=== PATIENT | female | born 1980 | race Hispanic/Latino ===

== ENCOUNTER 2020-12-12 22:34 | Emergency (ER) | payer OTHER, SELFPAY ==
--- NOTE | ~2020-12-12 | CT_ITS ---
EXAMINATION: CT abdomen pelvis w con INDICATION: Upper abdominal pain TECHNIQUE: Computed tomographic images of the abdomen and pelvis were obtained after the administrati on of 100 cc of Omnipaque 350 intravenous contrast. The dose-length product (DLP) was 335.48 mGy-cm. Automated exposure control and iterative reconstruction technique were employed. COMPARISON: None available FINDINGS: Minimal dependent atelectasis is present in the lung bases. The heart size is normal. The l iver, spleen, pancreas, gallbladder, and adrenal glands are normal. The kidneys are unremarkable. No pathologically enlarged abdominal or pelvic lymph nodes are identified. There is no free intraperiton eal gas or evidence of bowel obstruction. There is circumferential wall thickening involving much of the ileum. The appendix is normal. IMPRESSION: 1. Ileitis which could be infectious or manifestation of inflammatory bowel disease. Reviewed, dictated and finalized at location A. IMPRESSION: 1. Ileitis which could be infectious or manifestation of inflammatory bowel dis ease.
[2020-12-12 22:39] VITALS: BP 140/80; PULSE 72; RESP 20; TEMP 36.1; O2SAT 100
[2020-12-12 23:00] LABS: Basophils Percent Auto 0.3 % (0.2-1.2); Eosinophils Absolute Auto 0.3 K/mm3 (0-0.3); Eosinophils Percent Auto 2.1 % (0-4.4); Hematocrit 42.7 % (37.0-47.0); Hemoglobin 13.8 g/dL (12.0-15.0); Immature Granulocyte Absolute 0.05 K/mm3 (0.00-0.031); Immature Granulocyte Percent A 0.4 % (0-0.5); Lymphocytes Percent Auto 14.3 % (18.3-44.2); Mean Corpuscular HGB Conc 32.3 g/dl (32-36); Mean Corpuscular Hemoglobin 27.1 pg (26-34); Mean Corpuscular Volume 83.9 fl (80-100); Mean Platelet Volume 10.2 fl (7.4-10.4); Monocytes Absolute Auto 0.6 K/mm3 (0.1-0.6); Monocytes Percent Auto 5.4 % (2.6-8.5); Neutrophils Absolute Auto 9.2 K/mm3 (1.3-6.7); Neutrophils Percent Auto 77.5 % (45.5-73.1); Platelet Count Result 310 k/mm3 (150-375); Red Blood Count 5.09 M/mm3 (4.2-5.4); Red Cell Distribution Width 12.8 % (11.5-14.5); White Blood Count 11.9 K/mm3 (4.5-10.0)
[2020-12-12 23:09] LABS: Alanine Aminotransferase 36 U/L (4-35); Albumin Level 4.6 g/dL (3.5-5.1); Alkaline Phosphatase 77 U/L (38-126); Anion Gap 7 mmol/L (8-16); Aspartate Amino Transferase 33 U/L (14-36); Bilirubin,Total 0.7 mg/dL (0.2-1.3); Blood Urea Nitrogen 14 mg/dL (7-17); Calcium 9.1 mg/dL (8.4-10.2); Carbon Dioxide 25 mmol/L (22-30); Chloride 108 mmol/L (98-107); Estimated CRCL calculation 97 ml/min; Estimated Glomerular Filt Rate > 60; Glucose 96 mg/dL (65-110); Lipase 106 U/L (23-300); Potassium 3.5 mmol/L (3.4-5.0); Sodium 140 mmol/L (137-145)
[2020-12-12 23:31] LABS: Add Urine Microscopic? YES; Appearance Urine Cloudy (Clear); Bilirubin Urine Negative (Negative); Blood Urine Negative (Negative); Color Urine Yellow (Yellow); Glucose Urine UA Negative (Negative); Ketones Urine Negative (Negative); Leukocyte Esterase Ur Negative LEU/UL (Negative); Mucus Urine Rare /lpf; Nitrate Urine Negative (Negative); Protein Urine Negative (Negative); RBC Urine 0-2 /hpf (0-2); Squamous Epithelial Cell Urine Moderate /hpf (Few); Urobilinogen Urine Negative mg/dL (<2.0)
[2020-12-12 23:41] LABS: Specific Grav Ur 1.031 (1.001-1.035)
[2020-12-13 02:53] VITALS: BP 119/83; PULSE 66; RESP 16; O2SAT 98
[2020-12-13] MEDS: ONDANSETRON INJ 4 MG/2 ML VIAL IV PUSH (03:29)
[2020-12-13] MEDS: SODIUM CHLORIDE 0.9% IV 1,000 ML 999 ML IV CONT (03:29)
[2020-12-13] MEDS: DICYCLOMINE HCL INJ 20 MG/2 ML VIAL IM (03:30)
[2020-12-13 04:35] VITALS: BP 119/77; PULSE 83; RESP 16; O2SAT 100
--- NOTE | 2020-12-13 05:49 | ED.GENADULT ---
HPI - General Adult General Chief complaint: Abdominal Pain Stated complaint: Abdominal pain Time Seen by Provider: 12/13/20 03:01 History of Present Illness HPI narrative: Patient is a 40-year-old female that presents the emergency department with chief complaint of abdominal pain and diarrhea and nausea. The patient states that around 6 PM tonight she started having discomfort throughout her abdomen the patient reports that the pain is worse with movement and improved with rest. The patient reports has had some episodes of diarrhea but no blood in her stool. The patient denies fever reports no unusual foods reports no other sick contacts no travel. Patient reports no prior history of inflammatory bowel disorder. Related Data Home Medications Medication Instructions Recorded Confirmed No Home Medications 12/13/20 12/13/20 Allergies Allergy/AdvReac Type Severity Reaction Status Date / Time No Known Allergies Allergy Verified 12/13/20 02:55 Review of Systems Review of Systems: A 10 system review of systems was completed on the patient and is negative except for what is stated in the HPI. Nursing and ancillary documentation was reviewed. Exam Narrative: GENERAL: Well-appearing, well-nourished, and in no acute distress. HEAD: Normocephalic, atraumatic. EYES: PERRLA and EOMI. ENT: Nares clear, no rhinorrhea or epistaxis. Mucous membranes moist. NECK: Supple. CHEST: Clear to auscultation. No respiratory distress. HEART: Regular rate and rhythm. No murmur heard. Normal peripheral pulses. ABDOMEN: Soft, diffuse tenderness to palpation, nondistended, normal active bowel sounds. EXTREMITIES: Normal range of motion. No edema. SKIN: Warm, dry, no rash. NEURO: No focal deficits. Alert and oriented x3. PSYCH: Normal mood and affect. Course Vital Signs Vital signs: Vital Signs Temperature 36.1 C L 12/12/20 22:39 Pulse Rate 72 12/12/20 22:39 Respiratory Rate 20 12/12/20 22:39 Blood Pressure 140/80 12/12/20 22:39 Pulse Oximetry 100 12/12/20 22:39 Temperature 36.1 C L 12/12/20 22:39 Pulse Rate 83 12/13/20 04:35 Respiratory Rate 16 12/13/20 04:35 Blood Pressure 119/77 12/13/20 04:35 Pulse Oximetry 100 12/13/20 04:35 Medical Decision Making Vital Signs Vital Signs: Vital Signs Temperature 36.1 C L 12/12/20 22:39 Pulse Rate 72 12/12/20 22:39 Respiratory Rate 20 12/12/20 22:39 Blood Pressure 140/80 12/12/20 22:39 Pulse Oximetry 100 12/12/20 22:39 Temperature 36.1 C L 12/12/20 22:39 Pulse Rate 83 12/13/20 04:35 Respiratory Rate 16 12/13/20 04:35 Blood Pressure 119/77 12/13/20 04:35 Pulse Oximetry 100 12/13/20 04:35 Lab Data Result diagrams: 12/12/20 22:49 12/12/20 22:49 Labs: Lab Results 12/12/20 12/12/20 12/12/20 Range/Units 22:49 22:49 23:17 WBC 11.9 H (4.5-10.0) K/mm3 RBC 5.09 (4.2-5.4) M/mm3 Hgb 13.8 (12.0-15.0) g/dL Hct 42.7 (37.0-47.0) % MCV 83.9 (80-100) fl MCH 27.1 (26-34) pg MCHC 32.3 (32-36) g/dl RDW 12.8 (11.5-14.5) % Plt Count 310 (150-375) k/mm3 MPV 10.2 (7.4-10.4) fl Immature Gran % (Auto) 0.4 (0-0.5) % Neut % (Auto) 77.5 H (45.5-73.1) % Lymph % (Auto) 14.3 L (18.3-44.2) % [place] % (Auto) 5.4 (2.6-8.5) % Eos % (Auto) 2.1 (0-4.4) % Baso % (Auto) 0.3 (0.2-1.2) % Lymph # (Auto) 1.70 (0.9-3.2) K/mm3 [place] # (Auto) 0.6 (0.1-0.6) K/mm3 Eos # (Auto) 0.3 (0-0.3) K/mm3 Baso # (Auto) 0.0 (0.0-0.1) K/mm3 Abs Immat Gran (auto) 0.05 H (0.00-0.031) K/mm3 Absolute Neuts (auto) 9.2 H (1.3-6.7) K/mm3 Absolute Nucleated RBC 0.0 (0.0-0.012) K/mm3 Nucleated RBC % 0.0 (0.0-0.2) % Sodium 140 (137-145) mmol/L Potassium 3.5 (3.4-5.0) mmol/L Chloride 108 H (98-107) mmol/L Carbon Dioxide 25 (22-30) mmol/L Anion Gap 7 L (8-16) mmol/L BUN 14 (7-17) mg/dL Creati
[2020-12-13 06:06] VITALS: BP 125/78; PULSE 78; RESP 18; O2SAT 100
== END 2020-12-13 06:08 | disposition home or self-care (01) ==
PROVIDERS: Emergency Provider Emergency Medicine
DX: K52.9 Noninfective gastroenteritis and colitis, unspecified (principal)
CPT/HCPCS: 36415; 74177; 80053; 81001; 81025; 83690; 85025; 96361; 96372; 96374; 99284; J0500; J2405; J7030; Q9967

== ENCOUNTER 2022-08-07 21:30 | Observation (INO) | payer OTHER, SELFPAY ==
--- NOTE | ~2022-08-07 | US_ITS ---
EXAMINATION: US OB <=14 wk fetus w TV INDICATION: R/O ectopic TECHNIQUE: Sonography of the pelvis was performed by transabdominal and transvaginal techniques. COMPARISON: None. RESULT: Uterus: Orientation: Anteverted. 14.5 x 5.8 x 7.8 cm. Myometrium: homogeneous echogenicity. Heteroge neously echogenic material within the endometrial canal, likely representing products of conception. Endometrial thickness 1.4 cm. Gestation: - Intrauterine gestational sac: Not seen. Right ovary: 2.3 x 2.0 x 2.0 cm. Normal sonographic appearance with physiologic follicles. . Left ovary: 3.4 x 2.6 x 2.7 cm. Normal sonographic appearance with physiologic follicles. . 1.9 cm hypoechoic left ovarian structure with slightly increased surrounding vascularity, possible corpus l uteal cyst. Pelvis free fluid: None. IMPRESSION: No intrauterine gestational sac or viable uterine detected. Technically, this examination r epresents a of unknown location. However, heterogeneous material in the endometrial canal i s concerning for loss, in progress. Recommend continued sonographic and clinical follow-up. Reviewed, dictated and finalized at location K. IMPRESSION: No intrauterine gestational sac or viable uterine detected. Technical ly, this examination represents a of unknown location. However, heter ogeneous material in the endometrial canal is concerning for loss, in progress. Recommend continued sonographic and clinical follow-up.
[2022-08-07 21:35] VITALS: BP 147/75; PULSE 77; RESP 18; TEMP 36.6; O2SAT 99
[2022-08-07 22:13] LABS: Basophils Percent Auto 0.4 % (0.2-1.2); Eosinophils Absolute Auto 0.3 K/mm3 (0-0.3); Eosinophils Percent Auto 3.4 % (0-4.4); Immature Granulocyte Absolute 0.01 K/mm3 (0.00-0.031); Immature Granulocyte Percent A 0.1 % (0-0.5); Lymphocytes Absolute Auto 2.17 K/mm3 (0.9-3.2); Lymphocytes Percent Auto 27.5 % (18.3-44.2); Mean Corpuscular HGB Conc 33.3 g/dl (32-36); Mean Corpuscular Hemoglobin 27.4 pg (26-34); Mean Corpuscular Volume 82.2 fl (80-100); Monocytes Absolute Auto 0.7 K/mm3 (0.1-0.6); Monocytes Percent Auto 8.6 % (2.6-8.5); Neutrophils Absolute Auto 4.7 K/mm3 (1.3-6.7); Platelet Count Result 337 k/mm3 (150-375); Red Blood Count 4.38 M/mm3 (4.2-5.4); Red Cell Distribution Width 13.4 % (11.5-14.5); White Blood Count 7.9 K/mm3 (4.5-10.0)
--- NOTE | 2022-08-07 22:18 | PC.NURSE ---
Pt states she has not been seen by OB and has not taken a test.
[2022-08-07 22:25] LABS: Alanine Aminotransferase 22 U/L (6-35); Albumin Level 4.5 g/dL (3.5-5.1); Alkaline Phosphatase 72 U/L (38-126); Anion Gap 8 mmol/L (8-16); Aspartate Amino Transferase 29 U/L (14-36); Bilirubin,Total 0.5 mg/dL (0.2-1.3); Blood Urea Nitrogen 14 mg/dL (7-17); Carbon Dioxide 25 mmol/L (22-30); Chloride 105 mmol/L (98-107); Estimated Glomerular Filt Rate > 60; Glucose 108 mg/dL (65-110); Lipase 115 U/L (23-300); Potassium 3.8 mmol/L (3.4-5.0); Sodium 138 mmol/L (137-145)
[2022-08-07 22:27] VITALS: BP 119/79; PULSE 72; RESP 16; O2SAT 99
[2022-08-07 22:38] LABS: Appearance Urine Clear (Clear); Bacteria Urine None Seen /hpf; Bilirubin Urine Negative (Negative); Blood Urine 3+ (Negative); Color Urine Yellow (Yellow); Glucose Urine UA Negative (Negative); Ketones Urine Negative (Negative); Leukocyte Esterase Ur Negative LEU/UL (Negative); Nitrate Urine Negative (Negative); Non Pathogenic Casts 0-2; Protein Urine Negative (Negative); RBC Urine 51-100 /hpf (0-2); Specific Grav Ur 1.017 (1.001-1.035); Squamous Epithelial Cell Urine None seen /hpf (Few); Urobilinogen Urine 0.2 mg/dL (<2.0); WBC Urine 0-5 /hpf; pH Urine 6.5 (5.0-9.0)
--- NOTE | 2022-08-07 22:54 | PC.NURSE ---
Called lab to check on urine sample sent to lab. Ree states she will receive it in computer shortly.
[2022-08-07 22:55] LABS: Add Urine Microscopic? YES
[2022-08-07 23:33] VITALS: BP 122/71; O2SAT 97
[2022-08-08] VITALS (15 sets, daily range): BP systolic 97–116; BP diastolic 61–75; PULSE 55–72; RESP 14–20; TEMP 36.1–36.8; O2SAT 96–100; BMI 28.2
--- NOTE | 2022-08-08 02:10 | ED.GENADULT ---
HPI - General Adult General Chief complaint: Abdominal Pain Stated complaint: abd'l pain Time Seen by Provider: 08/07/22 22:46 History of Present Illness HPI narrative: Patient is Samoan-speaking and a support director was used during the interview. Shira # [id number] This is a 42-year-old female presenting ED with chief complaint of vaginal bleeding. The patient was having some crampy abdominal pain and then passed tissue into the toilet earlier today. Since then she has had some mild vaginal bleeding soaking through a pad every 3 hours. Patient said her last period was in June and since then she has had continuous spotting. The patient denies vaginal discharge or possibility of STDs. She denies urinary symptoms. She has an physician gynecologist that she follows up with. Related Data Home Medications Medication Instructions Recorded Confirmed No Home Medications 12/13/20 12/13/20 Allergies Allergy/AdvReac Type Severity Reaction Status Date / Time No Known Allergies Allergy Verified 08/07/22 21:31 Exam Narrative: APPEARANCE: No apparent distress. Head: atraumatic. EYES: EOMI, NOSE: Atraumatic NECK: Trachea midline RESPIRATORY: No increased rate of breathing, clear to auscultation CARDIOVASCULAR: RRR, ABDOMINAL: Non-distended MUSCULOSKELETAl: Abdomen is mildly tender in the suprapubic area. No guarding or rebound. NEURO: Alert. Moving 4/4 extremities SKIN:: Warm, dry. Normal color PSYCHIATRIC: Normal affect Course Vital Signs Vital signs: Vital Signs Temperature 98 F 08/07/22 21:35 Pulse Rate 77 08/07/22 21:35 Respiratory Rate 18 08/07/22 21:35 Blood Pressure 147/75 H 08/07/22 21:35 Pulse Oximetry 99 08/07/22 21:35 Oxygen Delivery Room Air 08/07/22 21:35 Temperature 98 F 08/07/22 21:35 Pulse Rate 72 08/08/22 05:22 Respiratory Rate 18 08/08/22 05:22 Blood Pressure 100/75 08/08/22 05:22 Pulse Oximetry 98 08/08/22 05:22 Oxygen Delivery Room Air 08/07/22 21:35 Medical Decision Making MDM Narrative Medical decision making narrative: -Presentation: 42-year-old female presenting with vaginal bleeding after passing tissue into a toilet. 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 Metabolic panel is unremarkable. Urinalysis had 3+ blood but no evidence of infection. Patient is A positive does not require RhoGAM. Official read of the transvaginal ultrasound had not returned yet but the tech report showed complex tissue in the end cervical canal. Patient is still having bleeding. Dx tests considered but not ordered: -Procedures: -Interventions: -Shared decision making / Disposition: Patient will be admitted to the hospital for OBGYN evaluation possible D&C. -RX Vital Signs Vital Signs: Vital Signs Temperature 98 F 08/07/22 21:35 Pulse Rate 77 08/07/22 21:35 Respiratory Rate 18 08/07/22 21:35 Blood Pressure 147/75 H 08/07/22 21:35 Pulse Oximetry 99 08/07/22 21:35 Oxygen Delivery Room Air 08/07/22 21:35 Temperature 98 F 08/07/22 21:35 Pulse Rate 72 08/08/22 05:22 Respiratory Rate 18 08/08/22 05:22 Blood Pressure 100/75 08/08/22 05:22 Pulse Oximetry 98 08/08/22 05:22 Oxygen Delivery Room Air 08/07/22 21:35 Lab Data 08/07/22 22:04 08/07/22 22:04 Labs: Lab Results 08/07/22 08/07/22 08/07/22 Range/Units 22:03 22:04 22:04 WBC 7.9 (4.5-10.0) K/mm3 RBC 4.38 (4.2-5.4) M/mm3 Hgb 12.0 (12.0-15.0) g/dL Hct 36.0 L (37.0-47.0) % MCV 82.2 (80-100
[2022-08-08] MEDS: SODIUM CHLORIDE 0.9% IV 1,000 ML 999 ML IV CONT (06:26)
[2022-08-08 06:30] LABS: Hematocrit 36.4 % (37.0-47.0)
[2022-08-08] MEDS: SODIUM CHLORIDE 0.9% IV 1,000 ML 150 ML IV CONT (09:04)
[2022-08-08] MEDS: PANTOPRAZOLE SODIUM IV 40 MG VIAL IV PUSH (10:00)
--- NOTE | 2022-08-08 11:16 | WPDANESEPPF ---
Anes - Initial Pre Proc Eval Procedure: Operation Date: 08/08/22 11:30 Proposed Procedures p D&C Suction and Sharp - Giovanny Bliss MD Date/Time: 08/08/22 11:16 Surgeon: Giovanny Bliss MD Pre Op Diagnosis: POC Patient Data Age: 42 Gender: F Height: 1.57 m Weight: 70 kg Last Vital Signs Temp 36.1 C L 08/08/22 08:49 Pulse 63 08/08/22 08:49 Resp 20 08/08/22 08:49 BP 112/68 08/08/22 08:49 Pulse Ox 99 08/08/22 08:49 O2 Del Method Room Air 08/07/22 21:35 Allergies Allergy/AdvReac Type Severity Reaction Status Date / Time No Known Allergies Allergy Verified 08/07/22 21:31 Home Medications Medication Instructions Recorded Confirmed Type No Home Medications 12/13/20 08/08/22 History Laboratory Tests 08/07/22 08/07/22 08/07/22 22:03 22:04 22:04 WBC 7.9 K/mm3 K/mm3 (4.5-10.0) RBC 4.38 M/mm3 M/mm3 (4.2-5.4) Hgb 12.0 g/dL g/dL (12.0-15.0) Hct 36.0 % L % (37.0-47.0) MCV 82.2 fl fl (80-100) MCH 27.4 pg pg (26-34) MCHC 33.3 g/dl g/dl (32-36) RDW 13.4 % % (11.5-14.5) Plt Count 337 k/mm3 k/mm3 (150-375) MPV 10.0 fl fl (7.4-10.4) Immature Gran % (Auto) 0.1 % % (0-0.5) Neut % (Auto) 60.0 % % (45.5-73.1) Lymph % (Auto) 27.5 % % (18.3-44.2) [place] % (Auto) 8.6 % H % (2.6-8.5) Eos % (Auto) 3.4 % % (0-4.4) Baso % (Auto) 0.4 % % (0.2-1.2) Lymph # (Auto) 2.17 K/mm3 K/mm3 (0.9-3.2) [place] # (Auto) 0.7 K/mm3 H K/mm3 (0.1-0.6) Eos # (Auto) 0.3 K/mm3 K/mm3 (0-0.3) Baso # (Auto) 0.0 K/mm3 K/mm3 (0.0-0.1) Abs Immat Gran (auto) 0.01 K/mm3 K/mm3 (0.00-0.031) Absolute Neuts (auto) 4.7 K/mm3 K/mm3 (1.3-6.7) Absolute Nucleated RBC 0.0 K/mm3 K/mm3 (0.0-0.012) Nucleated RBC % 0.0 % % (0.0-0.2) Sodium 138 mmol/L mmol/L (137-145) Potassium 3.8 mmol/L mmol/L (3.4-5.0) Chloride 105 mmol/L mmol/L (98-107) Carbon Dioxide 25 mmol/L mmol/L (22-30) Anion Gap 8 mmol/L mmol/L (8-16) BUN 14 mg/dL mg/dL (7-17) Creatinine 0.50 mg/dL L mg/dL (0.7-1.0) Estim Creat Clear Calc Not Reportable Estimated GFR > 60 (59 - ) Glucose 108 mg/dL mg/dL (65-110) Calcium 9.0 mg/dL mg/dL (8.4-10.2) Total Bilirubin 0.5 mg/dL mg/dL (0.2-1.3) AST 29 U/L U/L (14-36) ALT 22 U/L U/L (6-35) Alkaline Phosphatase 72 U/L U/L (38-126) Total Protein 8.0 g/dL g/dL (6.3-8.2) Albumin 4.5 g/dL g/dL (3.5-5.1) Lipase 115 U/L U/L (23-300) Beta HCG, Quant 93352.00 mIU/ML mIU/ML Urine Color Urine Appearance Urine pH Ur Specific [place] Urine Protein Urine Glucose (UA) Urine Ketones Ur Blood (Man) Urine Nitrate Urine Bilirubin Urine Urobilinogen Leukocyte Esterase Rfl Urine RBC Urine WBC Ur Squamous Epith Cells Urine Bacteria Urine Casts Blood Type Antibody Screen 08/07/22 08/07/22 08/08/22 22:04 22:28 06:21 WBC RBC Hgb 12.0 g/dL g/dL (12.0-15.0) Hct 36.4 % L % (37.0-47.0) MCV MCH MCHC RDW Plt Count MPV Immature Gran % (Auto) Neut % (Auto) Lymph % (Auto) [place] % (Auto) Eos % (Auto) Baso % (Auto) Lymph # (Auto) [place] # (Auto) Eos # (Auto) Baso # (Auto) Abs Immat Gran (auto)
--- NOTE | 2022-08-08 11:27 | PM.IMHP ---
H&P: HPI History of Present Illness Date/Time: 08/08/22 11:27 Chief Complaint: incomplete Narrative: 42-year-old female with incomplete and vaginal bleeding. To proceed with suction D&C. She understands risks, benefits, and alternatives. Discussed procedure with the patient. She understands that injuries may occur the hospitalization, surgical smear was. She denies any nausea, vomiting, fever, chills. She denies any chest pain or shortness of breath. Review of Systems Review of Systems: All systems reviewed & are unremarkable except as noted in HPI and below Constitutional: Constitutional: Denies chills, Denies fatigue, Denies fever(s) and Denies weakness Eyes: Eyes: Denies blurry vision, Denies change in vision, Denies loss of peripheral vision, Denies loss of vision, Denies other visual disturbances and Denies eye pain ENT: Denies vertigo, Denies dizziness, Denies hearing loss, Denies mouth pain, Denies nasal obstruction, Denies neck mass and Denies neck pain Cardiovascular: Cardiovascular: Denies chest pain, Denies diaphoresis, Denies syncope, Denies leg edema and Denies dyspnea Respiratory: Respiratory: Denies chest congestion, Denies cough, Denies hemoptysis, Denies dyspnea and Denies wheezing Gastrointestinal: Gastrointestinal: Denies abdominal pain, Denies constipation, Denies diarrhea, Denies nausea and Denies vomiting Genitourinary: Genitourinary: Denies hematuria, Denies change in libido, Denies nocturia, Denies genital lesions, Denies flank pain and Denies urinary urgency Musculoskeletal: Musculoskeletal: Denies abnormal gait, Denies back pain, Denies myalgias, Denies arthralgias, Denies joint swelling, Denies muscle weakness and Denies neck pain Integumentary/Breasts: Skin/Breast: Denies swelling, Denies breast pain, Denies breast mass, Denies dry skin, Denies nipple discharge, Denies unusual bruising and Denies jaundice Neurologic: Denies Neuro-related abnormal movements, Denies Abnormal speech present, Denies abnormal gait, Denies behavioral changes, Denies confusion, Denies vertigo, Denies dizziness, Denies syncope, Denies loss of vision, Denies memory loss, Denies convulsions and Denies weakness Psychiatric: Psychiatric: Denies abnormal sleep pattern, Denies behavioral changes, Denies change in libido, Denies confusion, Denies depression, Denies anhedonia and Denies memory loss Endocrine: Endocrine: Reports no additional endocrine complaints, Denies change in libido and Denies fatigue Hematologic/Lymphatic: Hematologic/Lymphatic: Reports no additional hematologic/lymphatic complaints Allergic/Immunologic: Allergic/Immunologic: Reports no additional allergic/immunologic complaints and Denies wheezing PMFSH Social History Social History Smoking status: Never smoker Alcohol intake: never Substance use: never Lack of Transportation: No Lack of Food: Never True Current Housing: I Have Housing Concerned About Future Housing: No Difficulty Paying Gas/Electric Bills: No Difficulty Paying for Meds: No Currently Unemployed: No Education: Decline to Answer Difficulty w/ Childcare or Family Care: No Spiritual care concerns: No Meds Home Medications and Allergies Home Medications Medication Instructions Recorded Confirmed Type No Home Medications 12/13/20 08/08/22 History Allergies Allergy/AdvReac Type Severity Reaction Status Date / Time No Known Allergies Allergy Verified 08/07/22 21:31 Vital Signs Vital Signs - 24 hr 08/07/22 21:35 08/07/22 22:27 08/07/22 23:33 Temperature 98 F Pulse Rate 77 72 Respiratory Rate 18 16 Blood Pressure 147/75 H 119/79 122/71 Pulse Oximetry 99 99 97 Oxygen Delivery Room Air 08/08/22 00:15 08/08/22 02:06 08/08/22 03:44 Temperature Pulse Rate 71 66 65 Respiratory Rate 18 16 14 Blood Pressure 103/61 110/74 104/63 Pulse Oximetry 97 98 99 O
[2022-08-08] MEDS: LIDOCAINE HCL 1% LOCAL INJ 20 ML VIAL 10 ML INFILTRATE (11:31)
--- NOTE | 2022-08-08 11:36 | WPDHPUPDATE1 ---
History and Physical Update Update Date/Time: 08/08/22 11:36 History and Physical has been reviewed, including an updated exam of the patient. There are NO changes in the patient's condition. Risks, benefits, and alternatives have been discussed and questions answered. Patient agrees to proceed with procedure.
[2022-08-08] MEDS: LACTATED RINGERS 1,000 ML 30 ML IV CONT (11:55)
[2022-08-08] MEDS: fentaNYL CITRATE INJ (*CRX) 100 MCG/2 ML VIAL 25 MCG IV PUSH ×2 (12:00→12:11)
--- NOTE | 2022-08-10 21:50 | P.OP_ITS ---
Procedure Note - Detailed Date of Procedure 08/10/22 Pre-op Diagnosis incomplete miscarriage Post-op Diagnosis Same Procedure Performed Suction D&C Surgeon Giovanny Bliss MD Anesthesia MAC Indications missed Findings normal-appearing vulva vagina and cervix to. Moderate amount of products conception within the uterus. 8 cm uterus Description of Procedure the patient was taken the operating room. She was prepped and draped in dorsal lithotomy position after induction of mac anesthesia. A speculum was placed in the vagina. Cervix grasped with tenaculum. The cervix was dilated to about 1 cm Using Shaw dilators. A 8. [place] curved curette was used to perform suction D&C. The curette was introduced and vacuum was applied. The curette was removed over all surfaces of the intrauterine cavity multiple times. This was done until all the surfaces were clear and had the familiar grainy texture they can be felt through the instrument. A sharp curette was then used to curettage all the surfaces. The suction cup was then reapplied 1 more time to remove any debris. The instruments were removed. The speculum and tenaculum were removed. The patient tolerated the procedure well. She was taken recovery room stable condition. Estimated Blood Loss 50 Drains No Packing No Pathology Yes Complications No immediate complications Condition Stable Disposition PACU
--- NOTE | 2022-08-29 19:15 | PM.DS ---
DS: Admitting Diagnosis Discharge Date 08/08/22 Admitting Diagnosis incomplete DS: Summary Hospital Course Hospital Course: 42-year-old female admitted for bleeding to the emergency department with positive test. Found have incomplete . She observed for period of time and then a suction D&C was performed the day after her admission. She tolerated the procedure well. Bleeding diminished / resolved. She was seen later she will be seen later in the office. Time Spent with Patient Time attestation: Total time spent providing and/or coordinating discharge services: DS: Data Data Completed and Pending Completed studies during hospitalization: Pending at discharge 08/08/22 11:44 Surgical [PTH] Routine Discharge Plan Discharge Consulting providers: Guillaume Wayne; Lucius Carlos Discharging Clinician: Giovanny Bliss Patient Disposition: Home, Self-Care Activity: pelvic rest Diet: regular Discharge Instructions: Monitor temperature. Come to ER if you have any fever greater than 100.4 or greater. Monitor bleeding. If you saturate greater than one pad in one hour than come back to the ER. Patient Instructions: Antibiotic Form, Dilation and Curettage (GEN) Stand Alone Forms: General Discharge Information Follow-up/Referrals: Giovanny Bliss MD [Physician] - Call for Appointment Date of admission: 08/08/22 06:04 Primary Care Provider: PHYSICIAN NOT ON STAFF,NONSTAFF Admitting Provider: Giovanny Bliss Attending physician on admission: Giovanny Bliss Condition: Stable
--- NOTE | 2022-09-20 12:32 | PM.OBTRLD ---
OB - Triage/Final Diagnosis Visit Information Comments/Additional reasons for admission: I have assessed the risk for this patient, Mahnaz Chacon, and determined that she would benefit from observation care. Evaluation Laboratory results: Laboratory Tests 08/07/22 08/07/22 08/07/22 22:03 22:04 22:28 WBC 7.9 RBC 4.38 Hgb 12.0 Hct 36.0 L MCV 82.2 MCH 27.4 MCHC 33.3 RDW 13.4 Plt Count 337 MPV 10.0 Immature Gran % (Auto) 0.1 Neut % (Auto) 60.0 Lymph % (Auto) 27.5 [place] % (Auto) 8.6 H Eos % (Auto) 3.4 Baso % (Auto) 0.4 Lymph # (Auto) 2.17 [place] # (Auto) 0.7 H Eos # (Auto) 0.3 Baso # (Auto) 0.0 Abs Immat Gran (auto) 0.01 Absolute Neuts (auto) 4.7 Absolute Nucleated RBC 0.0 Nucleated RBC % 0.0 Sodium 138 Potassium 3.8 Chloride 105 Carbon Dioxide 25 Anion Gap 8 BUN 14 Creatinine 0.50 L Estim Creat Clear Calc Not Reportable Estimated GFR > 60 Glucose 108 Calcium 9.0 Total Bilirubin 0.5 AST 29 ALT 22 Alkaline Phosphatase 72 Total Protein 8.0 Albumin 4.5 Lipase 115 Beta HCG, Quant 08324.00 Urine Color Yellow Urine Appearance Clear Urine pH 6.5 Ur Specific [place] 1.017 Urine Protein Negative Urine Glucose (UA) Negative Urine Ketones Negative Ur Blood (Man) 3+ H Urine Nitrate Negative Urine Bilirubin Negative Urine Urobilinogen 0.2 Leukocyte Esterase Rfl Negative Urine RBC 51-100 Urine WBC 0-5 Ur Squamous Epith Cells None seen Urine Bacteria None seen Urine Casts 0-2 Blood Type A Positive Antibody Screen Negative 08/08/22 06:21 WBC RBC Hgb 12.0 Hct 36.4 L MCV MCH MCHC RDW Plt Count MPV Immature Gran % (Auto) Neut % (Auto) Lymph % (Auto) [place] % (Auto) Eos % (Auto) Baso % (Auto) Lymph # (Auto) [place] # (Auto) Eos # (Auto) Baso # (Auto) Abs Immat Gran (auto) Absolute Neuts (auto) Absolute Nucleated RBC Nucleated RBC % Sodium Potassium Chloride Carbon Dioxide Anion Gap BUN Creatinine Estim Creat Clear Calc Estimated GFR Glucose Calcium Total Bilirubin AST ALT Alkaline Phosphatase Total Protein Albumin Lipase Beta HCG, Quant Urine Color Urine Appearance Urine pH Ur Specific [place] Urine Protein Urine Glucose (UA) Urine Ketones Ur Blood (Man) Urine Nitrate Urine Bilirubin Urine Urobilinogen Leukocyte Esterase Rfl Urine RBC Urine WBC Ur Squamous Epith Cells Urine Bacteria Urine Casts Blood Type Antibody Screen Final Diagnosis (1) Incomplete : Code(s): O03.4 - Incomplete spontaneous without complication Status: Acute
== END 2022-08-08 16:01 | disposition home or self-care (01) ==
LOC: ANHED 22:46 → ANH3MEDSUR 08-08 08:14
PROVIDERS: Admitting Provider Obstetrics & Gynecology; Emergency Provider Emergency Medicine; Visit Provider Obstetrics & Gynecology
PROC: (CPT 59812; principal; 2022-08-08 11:30)
DX: O03.4 Incomplete spontaneous abortion without complication (principal)
CPT/HCPCS: 59812; 36415; 76801; 76817; 80053; 81001; 81025; 83690; 84702; 85014; 85018; 85025; 86850; 86900; 86901; 88305; 96361; 96374; 96375; 99285; C9113; G0378; G0379; J2704; J3010; J7030; J7120

== ENCOUNTER 2022-08-11 17:35 | Emergency (ER) | payer OTHER, SELFPAY ==
--- NOTE | ~2022-08-11 | CT_ITS ---
CT of the Abdomen and Pelvis: Indication: Abdominal pain Technique: 2.5 mm axial scans were obtained through the abdomen and pelvis following intravenous adm inistration of 100 cc of Omnipaque 350. Dose reduction technique was used on this scan by utilizing a utomated exposure control and iterative reconstruction technique. The dose-length product (DLP) was 3 56.38 mGy-cm. COMPARISON: 12/13/2020 Findings: Scans through the lung bases are unremarkable. The liver, spleen, pancreas, gallbladder, adrenals and kidneys are within normal limits. No evidence of aortic aneurysm. No lymphadenopathy. No bowel obstruction or bowel wall thickening. There is no evidence to suggest acute appendicitis. Images through the pelvis were performed. Urinary bladder unremarkable. No definite adnexal mass seen . No ascites. Impression: No significant abnormalities seen. Reviewed, dictated and finalized at [facility]. Impression: No significant abnormalities seen.
--- NOTE | ~2022-08-11 | US_ITS ---
Pelvic ultrasound. Clinical History: Pelvic pain, recent D&C Technique: Realtime transabdominal and transvaginal scanning of the pelvis was performed. Color flow Doppler and Doppler spectral analysis were performed. Findings: The uterus is anteverted. The endometrial stripe has a thickness of 9 mm. No focal mass is identified. No abnormal color-flow seen in the uterus. The right ovary measures 2.6 x 1.3 x 1.5 cm. No significant right ovarian or adnexal mass is seen. The left ovary measures 4.4 x 2.1 x 2.1 cm. No significant left ovarian or adnexal mass is seen. Vascular flow probably identified in both ovaries on Doppler spectral analysis. There is no evidence of free fluid in the cul de sac. Impression: Unremarkable pelvic ultrasound. Reviewed, dictated and finalized at [facility]. Impression: Unremarkable pelvic ultrasound.
[2022-08-11 17:44] VITALS: BP 127/70; PULSE 67; RESP 17; TEMP 36.4; O2SAT 99
[2022-08-11 20:09] LABS: Basophils Percent Auto 0.5 % (0.2-1.2); Eosinophils Absolute Auto 0.3 K/mm3 (0-0.3); Eosinophils Percent Auto 4.6 % (0-4.4); Hematocrit 38.6 % (37.0-47.0); Hemoglobin 12.5 g/dL (12.0-15.0); Immature Granulocyte Absolute 0.02 K/mm3 (0.00-0.031); Immature Granulocyte Percent A 0.3 % (0-0.5); Lymphocytes Absolute Auto 2.02 K/mm3 (0.9-3.2); Lymphocytes Percent Auto 33.4 % (18.3-44.2); Mean Corpuscular HGB Conc 32.4 g/dl (32-36); Mean Corpuscular Hemoglobin 27.3 pg (26-34); Mean Corpuscular Volume 84.3 fl (80-100); Mean Platelet Volume 10.2 fl (7.4-10.4); Monocytes Absolute Auto 0.4 K/mm3 (0.1-0.6); Monocytes Percent Auto 6.8 % (2.6-8.5); Neutrophils Absolute Auto 3.3 K/mm3 (1.3-6.7); Neutrophils Percent Auto 54.4 % (45.5-73.1); Platelet Count Result 363 k/mm3 (150-375); Red Blood Count 4.58 M/mm3 (4.2-5.4); Red Cell Distribution Width 13.6 % (11.5-14.5)
[2022-08-11 20:20] LABS: Alanine Aminotransferase 30 U/L (6-35); Albumin Level 4.4 g/dL (3.5-5.1); Alkaline Phosphatase 75 U/L (38-126); Anion Gap 7 mmol/L (8-16); Aspartate Amino Transferase 38 U/L (14-36); Bilirubin,Total 0.5 mg/dL (0.2-1.3); Blood Urea Nitrogen 10 mg/dL (7-17); Carbon Dioxide 26 mmol/L (22-30); Chloride 103 mmol/L (98-107); Estimated Glomerular Filt Rate > 60; Glucose 92 mg/dL (65-110); Lipase 83 U/L (23-300); Potassium 3.9 mmol/L (3.4-5.0); Sodium 136 mmol/L (137-145)
[2022-08-11] MEDS: ONDANSETRON INJ 4 MG/2 ML VIAL IV PUSH (23:56)
[2022-08-11] MEDS: MORPHINE SULFATE (*CRX) 4 MG/ML INJ IV PUSH (23:56)
[2022-08-11] MEDS: SODIUM CHLORIDE 0.9% IV 1,000 ML 999 ML IV CONT (23:56)
[2022-08-12] VITALS (9 sets, daily range): BP systolic 103–130; BP diastolic 69–81; PULSE 60–65; RESP 13–166; O2SAT 96–100
[2022-08-12 00:20] LABS: Appearance Urine Clear (Clear); Bacteria Urine None Seen /hpf; Bilirubin Urine Negative (Negative); Blood Urine 3+ (Negative); Color Urine Yellow (Yellow); Glucose Urine UA Negative (Negative); Ketones Urine Negative (Negative); Leukocyte Esterase Ur Negative LEU/UL (Negative); Nitrate Urine Negative (Negative); Non Pathogenic Casts 0-2; Protein Urine Negative (Negative); RBC Urine 0-2 /hpf (0-2); Specific Grav Ur 1.004 (1.001-1.035); Squamous Epithelial Cell Urine None seen /hpf (Few); Urobilinogen Urine 0.2 mg/dL (<2.0); WBC Urine 0-5 /hpf
[2022-08-12 00:24] LABS: Add Urine Microscopic? YES
--- NOTE | 2022-08-12 03:19 | ED.GENADULT ---
HPI - General Adult General Chief complaint: Abdominal Pain Stated complaint: abd pain Time Seen by Provider: 08/11/22 23:01 History of Present Illness HPI narrative: Patient 42-year-old female who presents the emergency department with chief complaint of abdominal pain. Patient reports that she was seen in the emergency department over the weekend diagnosed with a missed and had a D&C. Patient reports that last night she started having abdominal pain patient reports that its in the lower pelvis area reports that it is sharp not improved by anything. Patient reports she is having very light bleeding patient denies fever reports that the symptoms or not improved by anything. Related Data Allergies Allergy/AdvReac Type Severity Reaction Status Date / Time No Known Allergies Allergy Verified 08/07/22 21:31 Review of Systems Review of Systems: A 10 system review of systems was completed on the patient and is negative except for what is stated in the HPI. Nursing and ancillary documentation was reviewed. [facility] Social History Social History Smoking status: Never smoker Alcohol intake: never Substance use: never Lack of Transportation: No Lack of Food: Never True Current Housing: I Have Housing Concerned About Future Housing: No Difficulty Paying Gas/Electric Bills: No Difficulty Paying for Meds: No Currently Unemployed: No Education: Decline to Answer Difficulty w/ Childcare or Family Care: No Spiritual care concerns: No Exam Narrative: GENERAL: Well-appearing, well-nourished, and in no acute distress. HEAD: Normocephalic, atraumatic. EYES: PERRLA and EOMI. ENT: Nares clear, no rhinorrhea or epistaxis. Mucous membranes moist. NECK: Supple. CHEST: Clear to auscultation. No respiratory distress. HEART: Regular rate and rhythm. No murmur heard. Normal peripheral pulses. ABDOMEN: Soft, mild tenderness to palpation in the pelvis, nondistended, normal active bowel sounds. EXTREMITIES: Normal range of motion. No edema. SKIN: Warm, dry, no rash. NEURO: No focal deficits. Alert and oriented x3. PSYCH: Normal mood and affect. Course Vital Signs Vital signs: Vital Signs Temperature 36.4 C L 08/11/22 17:44 Pulse Rate 67 08/11/22 17:44 Respiratory Rate 17 08/11/22 17:44 Blood Pressure 127/70 08/11/22 17:44 Pulse Oximetry 99 08/11/22 17:44 Oxygen Delivery Room Air 08/11/22 17:44 Temperature 36.4 C L 08/11/22 17:44 Pulse Rate 65 08/12/22 05:01 Respiratory Rate 16 08/12/22 05:01 Blood Pressure 106/78 08/12/22 05:01 Pulse Oximetry 96 08/12/22 05:01 Oxygen Delivery Room Air 08/11/22 17:44 Medical Decision Making [facility] Narrative Medical decision making narrative: Differential diagnosis includes appendicitis, retained products, uterine perforation, ovarian torsion CT scan of the abdomen pelvis was obtained which showed questionable partial thrombosis of the superior aspect of the right gonadal vein which is distended but nondilated measuring 9 mm. Appendix was normal there is no free fluid Laboratory studies were obtained which showed a normal CBC chemistry showed no acute abnormalities other than a AST that was minimally elevated at 38. Lipase was normal at 83 urinalysis showed 3+ blood but otherwise negative Pelvic ultrasound showed no evidence of ovarian torsion good blood flow to bilateral ovaries. Patient is feeling much better at this time Vital Signs Vital Signs: Vital Signs Temperature 36.4 C L 08/11/22 17:44 Pulse Rate 67 08/11/22 17:44 Respiratory Rate 17 08/11/22 17:44 Blood Pressure 127/70 08/11/22 17:44 Pulse Oximetry 99 08/11/22 17:44 Oxygen Delivery Room Air 08/11/22 17:44 Temperature 36.4 C L 08/11/22 17:44 Pulse Rate 65 08/12/22 05:01 Respiratory Rate 16 08/12/22 05:01 Blood Pressure 106/78 08/12/22 05:01 Pulse Oximetry 9
== END 2022-08-12 05:17 | disposition home or self-care (01) ==
PROVIDERS: General Practice; Emergency Provider Emergency Medicine
DX: R10.84 Generalized abdominal pain (principal)
CPT/HCPCS: 36415; 74177; 76856; 80053; 81001; 81025; 83690; 85025; 96361; 96374; 96375; 99284; J2270; J2405; J7030; Q9967

== ENCOUNTER 2022-09-03 08:27 | Emergency (ER) | payer OTHER, SELFPAY ==
[2022-09-03 08:39] VITALS: BP 120/83; PULSE 69; RESP 16; TEMP 36.4; O2SAT 99
--- NOTE | 2022-09-03 08:46 | ED.SKABFB ---
HPI - Skin/Abscess/Foreign Bdy General Chief complaint: Skin/Abscess/Foreign Body Stated complaint: Rash/Bumps on Body Time Seen by Provider: 09/03/22 08:48 Source: patient Mode of arrival: ambulatory Limitations: no limitations History of Present Illness HPI narrative: 42 y/o female presented for c/o rash and bumps to upper body for one week. Patient was seen by PCP 3 days ago, and was given permethrin cream which she used as directed. She then developed bumps to the lips and was concerned for allergy to the cream. Patient says the rash started on the right arm, and has spread to both arms, abdomen, and face. Rash is itchy with fluid filled bumps in various stages. Continues to notice new bumps appearing. Took Benadryl. Denies any other contacts in the home with similar appearing lesions. Endorses fatigue. Denies lip, tongue, or throat swelling/itching, shortness of breath or wheezing. Denies changes to soap, detergent, lotion, or any other exposures. Related Data Allergies Allergy/AdvReac Type Severity Reaction Status Date / Time No Known Allergies Allergy Verified 09/03/22 08:45 Review of Systems Review of Systems: CONSTITUTIONAL: Denies body aches, fever, chills, or sweats. EYES: Denies visual changes, redness, or discharge. ENT: Denies rhinorrhea, congestion CARDIOVASCULAR: Denies chest pain, palpitations, or edema. RESPIRATORY: Denies cough or dyspnea. GASTROINTESTINAL: Denies abdominal pain, nausea, vomiting, or diarrhea. SKIN: per HPI MUSCULOSKELETAL: Denies back pain, joint pain, or myalgia. NEUROLOGIC: Denies headache, numbness, tingling, or weakness. [facility] Past Medical History Medical History (Updated 09/03/22 @ 09:20 by Ivone Varghese APRN) Incomplete Social History Social History Smoking status: Never smoker Alcohol intake: never Substance use: never Lack of Transportation: No Lack of Food: Never True Current Housing: I Have Housing Concerned About Future Housing: No Difficulty Paying Gas/Electric Bills: No Difficulty Paying for Meds: No Currently Unemployed: No Education: Decline to Answer Difficulty w/ Childcare or Family Care: No Spiritual care concerns: No Comments At time of signature, I have reviewed and agree with nursing past medical, surgical, social and family history unless otherwise noted. Please see nursing chart for further information. There is no relevant family history pertinent to the presenting complaint Exam Narrative: GENERAL: Well-appearing HEAD: Normocephalic, atraumatic. EYES: conjunctivae clear, and EOMI. ENT: Mucous membranes moist. Lower lip with mild vesicular lesion to rola border. minimal lip swelling. Oropharynx without edema, erythema or lesions. CHEST: Clear to auscultation. HEART: Regular rate and rhythm. SKIN: Warm, dry. Scattered vesicular lesions over body surface, some on erythematous base, Left forearm with approx 5cm diameter erythematous crusted area, multiple areas with scab formation approx 0.5cm diameter. S/S c/w varicella. Sparing back and lower extremities. NEURO: Alert and oriented x3. Course Course Emergency Course: Patient is aware of diagnosis, understands and agrees to treatment plan. Anticipatory guidance given. Patient agrees to follow-up as directed and is aware of reasons to seek care at the emergency department. Portions of this record may have been created with voice recognition software Level of Care: Express Care Visit Vital Signs Vital signs: Vital Signs Temperature 97.6 F 09/03/22 08:39 Pulse Rate 69 09/03/22 08:39 Respiratory Rate 16 09/03/22 08:39 Blood Pressure 120/83 09/03/22 08:39 Pulse Oximetry 99 09/03/22 08:39 Oxygen Delivery Room Air 09/03/22 08:39 Temperature 97.6 F 09/03/22 08:39 Pulse Rate 69 09/03/22 08:39 Respiratory Rate 16 09/03/22 08:39 Blood Pressure 120/
== END 2022-09-03 09:17 | disposition home or self-care (01) ==
PROVIDERS: Emergency Provider Nurse Practitioner Family; PCP Physician Assistant
DX: L30.9 Dermatitis, unspecified (principal)
CPT/HCPCS: 99213; G0463

== ENCOUNTER 2023-03-14 18:11 | Emergency (ER) | payer OTHER, SELFPAY ==
[2023-03-14 18:27] VITALS: BP 109/73; PULSE 68; RESP 16; TEMP 36.3; O2SAT 99
--- NOTE | 2023-03-14 19:53 | ED.NAVMDI ---
HPI - Nausea/Vomiting/Diarrhea General Chief complaint: Nausea/Vomiting/Diarrhea Stated complaint: nausea,dizziness,headaches,vomiting Time Seen by Provider: 03/14/23 19:41 Source: patient and RN notes reviewed Mode of arrival: ambulatory Limitations: no limitations History of Present Illness HPI Narrative: Patient presents today complaining of a headache, dizziness, sweats and chills, vomiting, blurred vision. Symptoms began at 11:00 a.m. this morning. States her dizziness feels like the room is spinning. Dizziness is not worse with head movement. Blurred vision is only present when her dizziness is worse, which is sporadically through the day. Patient has vomited 7 times today, the last was 1 hour prior to arrival. She denies any current nausea. Denies chest pain or shortness of breath. Denies abdominal pain. She currently rates her headache 3/10. 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 She has not yet done this, but states today's symptoms are much worse. She has tried no medication for symptoms prior to arrival. Related Data Home Medications Medication Instructions Recorded Confirmed atorvastatin 20 mg tablet 20 mg PO DAILY 03/14/23 03/14/23 Allergies Allergy/AdvReac Type Severity Reaction Status Date / Time No Known Allergies Allergy Verified 03/14/23 18:27 Review of Systems Review of Systems: CONSTITUTIONAL: Denies body aches, fever.+ chills, sweats EYES: Denies redness, or discharge.+ blurred vision ENT: Denies rhinorrhea, congestion, sore throat, or otalgia. CARDIOVASCULAR: Denies chest pain, palpitations, or edema. RESPIRATORY: Denies cough or dyspnea. GASTROINTESTINAL: Denies abdominal pain, nausea, or diarrhea.+ vomiting GENITOURINARY: Denies dysuria or hematuria. SKIN: Denies rash, itching, or wounds. MUSCULOSKELETAL: Denies back pain, joint pain, or myalgia. NEUROLOGIC: Denies numbness, tingling, or weakness.+ headache, dizziness PSYCH: Denies depression or anxiety. [facility] Past Medical History Medical History (Updated 03/14/23 @ 19:58 by Elaine Moncada, DAVE, ) High cholesterol Incomplete Social History Social History Smoking status: Never smoker Alcohol intake: never Substance use: never Lack of Transportation: No Lack of Food: Never True Current Housing: I Have Housing Concerned About Future Housing: No Difficulty Paying Gas/Electric Bills: No Difficulty Paying for Meds: No Currently Unemployed: No Education: Decline to Answer Difficulty w/ Childcare or Family Care: No Spiritual care concerns: No Comments At time of signature, I have reviewed and agree with nursing past medical, surgical, social and family history unless otherwise noted. Please see nursing chart for further information. There is no relevant family history pertinent to the presenting complaint Exam Narrative: GENERAL: Well-appearing, well-nourished, and in no acute distress. HEAD: Normocephalic, atraumatic. EYES: EOMI. PERRL. No nystagmus. no redness or drainage. Conjunctivae normal. ENT: Mucous membranes pink and moist. Nares clear. No rhinorrhea. TMs normal bilaterally. NECK: Normal AROM. Supple. No lymphadenopathy. CHEST: No respiratory distress. Clear to auscultation. HEART: Regular rate and rhythm. No murmur appreciated. Normal peripheral pulses. ABDOMEN: Soft, nontender, nondistended, normal active bowel sounds. EXTREMITIES: Normal range of motion. No edema. SKIN: Warm, dry, no rash. Capillary refill normal. Normal skin turgor. NEURO: No focal deficits. Alert and oriented x3. Gait steady. PSYCH: Normal affect. No signs of depression or anxiety. Course Course Level of Care: Express Care Visit Vital Signs Vital signs: Vital Signs Temperature 97.4 F L 03/14/23 18:27 Pulse Rate 68 03/14/23 18:27 Respirat
== END 2023-03-14 20:04 | disposition left against medical advice (07) ==
PROVIDERS: Emergency Provider Nurse Practitioner; PCP Physician Assistant
DX: R42 Dizziness and giddiness (principal); E78.00 Pure hypercholesterolemia, unspecified
CPT/HCPCS: 99211; G0463

== ENCOUNTER 2024-04-11 18:33 | Emergency (ER) | payer OTHER, SELFPAY ==
[2024-04-11 18:46] VITALS: BP 116/64; PULSE 64; RESP 20; TEMP 36.6; O2SAT 100
--- NOTE | 2024-04-11 18:49 | ED_ITS ---
HPI - Female Genitourinary General Chief complaint: Urogenital-Female Stated complaint: urinary issue Time Seen by Provider: 04/11/24 18:58 Source: patient and RN notes reviewed Mode of arrival: ambulatory Limitations: no limitations History of Present Illness HPI Narrative: 44-year-old female presents with concern for urine frequency. Reports for 2 days she has had frequency and urgency and suprapubic pressure. She denies dysuria. Reports 1 episode of incontinence. She denies abdominal pain, flank pain, back pain, fever, chills, aches, sweats. Denies nausea, vomiting. Reports her menstrual period is 4 days late MD elicited complaint: UTI Related Data Home Medications ?Medication ?Instructions ?Recorded ?Confirmed ?Last Taken ?Type atorvastatin 20 mg tablet 20 mg PO DAILY 03/14/23 04/11/24 Unknown History Allergies Allergy/AdvReac Type Severity Reaction Status Date / Time No Known Allergies Allergy Verified 04/11/24 18:35 Review of Systems Review of Systems: CONSTITUTIONAL: Denies malaise, chills, sweats, or fever. CARDIOVASCULAR: Denies chest pain, palpitations, or edema. RESPIRATORY: Denies cough or dyspnea. GASTROINTESTINAL: Denies abdominal pain, nausea, vomiting, diarrhea GENITOURINARY: Reports frequency, urgency, suprapubic pressure. Denies dysuria, flank pain or hematuria. SKIN: Denies rash or itching. MUSCULOSKELETAL: Denies back pain or myalgia. All systems reviewed & are unremarkable except as noted in HPI and below PMFSH Past Medical History Medical History (Updated 04/11/24 @ 19:09 by Leticia Hester NP) High cholesterol Incomplete Social History Social History Smoking status: Never smoker Alcohol intake: never Substance use: never Lack of Transportation: No Lack of Food: Never True Current Housing: I Have Housing Concerned About Future Housing: No Difficulty Paying Gas/Electric Bills: No Difficulty Paying for Meds: No Currently Unemployed: No Education: Decline to Answer Difficulty w/ Childcare or Family Care: No Spiritual care concerns: No Comments At time of signature, agree with nursing past medical, surgical, social and family history. There is no relevant family history pertinent to the presenting complaint Exam Narrative: GENERAL: Well-appearing, well-nourished, and in no acute distress. HEAD: Normocephalic. EYES: PERRLA, conjunctivae clear. NECK: Supple. No lymphadenopathy CHEST: Clear to auscultation. No respiratory distress. HEART: Regular rate and rhythm. ABDOMEN: Soft, nontender upon palpation, nondistended, normal active bowel sounds, no palpable or pulsatile masses, no guarding. No CVA tenderness SKIN: Warm, dry, no rash. NEURO: Alert and oriented x3. PSYCH: Normal mood and affect Course Course Emergency Course: Patient is aware of diagnosis, understands and agrees to treatment plan. Anticipatory guidance given. Patient agrees to follow-up as directed and is aware of reasons to seek care at the emergency department. Portions of this record may have been created with voice recognition software Level of Care: Express Care Visit Vital Signs Vital signs: Vital Signs Temperature 98 F 04/11/24 18:46 Pulse Rate 64 04/11/24 18:46 Respiratory Rate 20 04/11/24 18:46 Blood Pressure 116/64 04/11/24 18:46 Pulse Oximetry 100 04/11/24 18:46 Oxygen Delivery Room Air 04/11/24 18:46 Temperature 98 F 04/11/24 18:46 Pulse Rate 64 04/11/24 18:46 Respiratory Rate 20 04/11/24 18:46 Blood Pressure 116/64 04/11/24 18:46 Pulse Oximetry 100 04/11/24 18:46 Oxygen Delivery Room Air 04/11/24 18:46 Reviewed. MDM - Female Genitourinary MDM Narrative Medical decision making narrative: Exam findings and UA show no acute concerns or changes; patient is non-toxic appearing and is in no distress. Patient is appropriate for outpatient treatment and follow-up. Differential Diagnosis Differential diagnosis: Likely urinary tract infection and cystitis Critical Care Time Critical Care Time Critical Care Time: No Discharge Plan Discharge Clinical Impression: Urine frequency Patient Disposition: Home, Self-Care Condition: Stable Instructions: Urinary Urgency and Frequency (DC) Additional Instructions: We will send a urine culture to the lab; if the culture identifies an organism that requires antibiotic, you will receive a phone call from an urgent care staff member and an appropriate antibiotic will be prescribed. -Also recommend: increase water intake. Tylenol/ibuprofen as needed for pain or fever -Follow-up with your primary care provider for urine recheck or seek ER visit if condition worsens with high fever, nausea, vomiting and severe back pain. Patient Language: Greek Prescriptions: New phenazopyridine [Pyridium] 200 mg tablet 200 mg PO TID PRN (Reason: pain) Qty: 6 0RF No Action atorvastatin 20 mg tablet 20 mg PO DAILY Follow-up/Referrals: Angeles,PRACHI Oden [Primary Care Provider] - Time of Disposition: 19:10
[2024-04-11 18:56] LABS: EDUAAPPEAR Cloudy; EDUABILI Negative (Negative); EDUABLOOD Negative (Negative); EDUACOLOR1 Yellow; EDUAGLUCOSE Negative (Negative); EDUAKETONE Negative (Negative); EDUALEUKO Negative (Negative); EDUANITRATE Negative (Negative); EDUAPROTEIN Negative (Negative); EDUASPGRAVITY 1.025; EDUAUROBILI 0.2
[2024-04-11 19:06] LABS: BEDSIDEPREGUCG Negative (Negative)
== END 2024-04-11 19:15 | disposition home or self-care (01) ==
PROVIDERS: Emergency Provider Nurse Practitioner; PCP Physician Assistant
DX: R35.0 Frequency of micturition (principal); E78.00 Pure hypercholesterolemia, unspecified
CPT/HCPCS: 81003; 81025; 87086; 99213; G0463